=== PATIENT | female | born 1985 | race Asian ===

== ENCOUNTER → 2017-01-28 | Outpatient (CLI) | payer BC ==
[2017-01-29 17:53] LABS: BLOOD UREA NITROGEN 15 mg/dL (7-20); CALCIUM 9.3 mg/dL (8.4-10.2); CHLORIDE 98 mmol/L (98-107); CREATININE RESULT 0.73 mg/dL (0.52-1.25); GLUCOSE 79 mg/dL (75-110); POTASSIUM 3.1 mmol/L (3.6-5.0)
[2017-01-29 17:54] LABS: ANION GAP 15 (5-19); CARBON DIOXIDE 27 mmol/L (22-30)
--- NOTE | 2017-01-31 17:48 | EKG REPORT ---
SEVERITY:- NORMAL ECG - SINUS RHYTHM : Confirmed by: Ora Victor MD 31-Jan-2017 17:47:35
== END ==
LOC: OD 15:00
PROVIDERS: ATTEND Specialist
DX: I10 Essential (primary) hypertension (principal)
CPT/HCPCS: 36415; 80048; 84443; 93005; 93010

== ENCOUNTER 2018-07-08 06:27 | Inpatient (IN) | payer BC, MEDICAID ==
[2018-07-08] MEDS ORDERED: RINGERS SOLUTION,LACTATED 1,000 ML IV PRN (06:35)
[2018-07-08] MEDS ORDERED: RINGERS SOLUTION,LACTATED 1,000 ML IV ONE (06:35)
[2018-07-08] MEDS ORDERED: OXYTOCIN/NORMAL SALINE 20 UNIT/1,000 ML RTUINJ IV PRN (06:38)
--- NOTE | 2018-07-08 06:53 | Admission Physical ---
Datetime Report Generated by CPN: 07/08/2018 06:53 CURRENT ADMISSION Chief Complaint: Scheduled Induction of Labor Indication for Induction: Chronic Primary/Essential HTN Admit Impression : Term, Intrauterine ; No Active Labor; Intact Membranes; Induction of Labor Admit Plan: Admit to Unit; Initiate Labor Induction Protocol ALLERGIES Medication Allergies: No Medication Allergies: No Known Allergies (07/08/2018) Latex: No Latex Allergies Food Allergies: N/A Environmental Allergies: N/A OBSTETRICAL HISTORY EDC: 07/21/2018 00:00 : 5 Para: 1 Term: 1 : 0 SAB: 3 IAB: 0 Ectopic: 0 Livin Cesareans: 0 VBACs: 0 Multiple Births: 0 Current Procedures: Ultrasound; NST Obstetrical History Comments: G1 - EAB 2003, 12 weeks G2 - SAB 2010 G3 - EAB 2011, 8 weeks G4 - 2015, boy, 39.0, 7 lbs 1 oz, loose nuchal x1 G5 - current, CHTN on procardia MEDICAL HISTORY Hypertension: Yes Hosp/Surgery: Yes Abnormal Pap Smear: Yes Medical History Comments: CHTN on procardia, ASCUS +HPV, Colpo PP, childbirth INFECTIOUS HISTORY HPV: Yes PHYSICAL EXAM General: Normal HEENT: Normal Neurologic: Normal Thyroid: Deferred Heart: Normal Lungs: Normal Breast: Deferred Back: Normal Abdomen: Normal Genitourinary Exam: Normal Extremities: Normal DTRs: Normal Pelvic Type: Adequate Vital Signs: Reviewed VAGINAL EXAM Dilatation: 1 Effacement: 70 Station: -3 Contraction Comments: rare MEMBRANES Membranes: Intact FETUS A EGA: 38.1 Monitoring: External US FHR- Baseline: 145 Variability: Moderate 6-25bpm Accelerations: 15X15 Decelerations: None FHR Category: Category I Presentation: Vertex Admit Comment: 32yo (EAB x 2, SAB x 1) at 38+1ega presents for IOL for CHTN on meds - currently on procardia. ASCUS with +HPV - needs colpo pp. Undesired Fertility and desires BTL pp. GBS negative. Admit to L_D and IOL with cooks and pitocin. Anticipate PLANS FOR LABOR AND DELIVERY Pain Management: Epidural Feeding Preference: Breast INFORMED CONSENT Informed Consent Obtained: Vaginal Delivery; Induction of Labor; Risks, Benefits and Alternatives Discussed Signature: with User ID: [email or web address]
[2018-07-08 07:28] LABS: ABSOLUTE EOSINOPHILS # (AUTO) 0.1 10^3/uL (0.0-0.6); ABSOLUTE MONOCYTES (AUTO) 0.8 10^3/uL (0.1-1.4); ABSOLUTE NEUT (AUTO) 6.2 10^3/uL (1.7-8.2); BASOPHILS % (AUTO) 0.5 % (0-2); EOSINOPHILS % (AUTO) 1.6 % (0-6); HEMATOCRIT 31.3 % (36.0-47.0); HEMOGLOBIN 10.6 g/dL (12.0-15.5); LYMPHOCYTES % (AUTO) 21.6 % (13-45); MEAN CORPUSCULAR HEMOGLOBIN 29.7 pg (27.0-33.4); MEAN CORPUSCULAR HGB CONC 34.1 g/dL (32.0-36.0); MEAN CORPUSCULAR VOLUME 87 fl (80-97); MONOCYTES % (AUTO) 8.2 % (3-13); PLATELET COUNT 294 10^3/uL (150-450); RED BLOOD COUNT 3.58 10^6/uL (3.72-5.28); RED CELL DISTRIBUTION WIDTH 14.2 % (11.5-14.0); SEGMENTED NEUTROPHILS % (AUTO) 68.1 % (42-78); TOTAL CELLS COUNTED % (AUTO) 100 %; WHITE BLOOD COUNT 9.1 10^3/uL (4.0-10.5)
[2018-07-08 07:36] LABS: APPEARANCE,URINE CLOUDY; BILIRUBIN,URINE NEGATIVE (NEGATIVE); COLOR,URINE YELLOW; GLUCOSE, URINE NEGATIVE (NEGATIVE); KETONES,URINE NEGATIVE (NEGATIVE); LEUKOCYTE ESTERASE,URINE TRACE (NEGATIVE); NITRITE,URINE NEGATIVE (NEGATIVE); PROTEIN,URINE NEGATIVE (NEGATIVE); URINE SPECIFIC GRAVITY 1.008; UROBILINOGEN,URINE NEGATIVE mg/dL (<2.0)
[2018-07-08 07:52] LABS: URINE AMPHETAMINES SCREEN NEGATIVE; URINE BARBITURATES SCREEN NEGATIVE; URINE BENZODIAZEPINES SCREEN NEGATIVE; URINE COCAINE SCREEN NEGATIVE; URINE MARIJUANA (THC) SCREEN NEGATIVE; URINE METHADONE SCREEN NEGATIVE; URINE PHENCYCLIDINE SCREEN NEGATIVE
--- NOTE | 2018-07-08 08:42 | L&D Progress Notes ---
PROGRESS NOTES Datetime Report Generated by CPN: 07/08/2018 08:42 PROGRESS NOTE Impression Other: IUP @38w1d Procedures: Sterile Vag Exam Procedures- Other: cook's catheter Plan: Continue Present Management; Induction; Cervical Ripening Informed Consent Obtained: Vaginal Delivery; Induction of Labor; Risks, Benefits and Alternatives Discussed Informed Consent Obtained: Vaginal Delivery; Induction of Labor; Risks, Benefits and Alternatives Discussed Vital Signs : Reviewed; Within Normal Limits Comment: S: comfortable, no concerns this am, planning on epidural for pain management, agreeable to cook's catheter O: VSS, Cat I tracing, cervix as stated A: IUP @ 38w1d IOL for CHTN-stable, cook's catheter placed without diffficulty, tolerated well P: start low dose pitocin at this time, epidural prn VAGINAL EXAM Dilatation: 2 Dilatation: 1 Effacement: 60 Effacement: 70 Station: -2 Station: -3 Contractions: rare Contractions: rare MEMBRANES Membranes: Intact Membranes: Intact FETUS A FHR - Baseline: 150 Monitoring: External US Variability: Moderate 6-25bpm Accelerations: Prolonged Decelerations: None FHR Category: Category I Presentation: Vertex SIGNATURE SIGNATURE: ,[id number] SIGNATURE: ,[id number] Assignment: Eleonora Talley MD Signature: with User ID: [email or web address] : with User ID: [email or web address]
[2018-07-08] MEDS ORDERED: LIDOCAINE 1% INJ-PF (10 MG/ML) 30 ML SDV ONE (08:52)
[2018-07-08] MEDS ORDERED: MISOPROSTOL 0.2 MG TABLET ONE (08:52)
[2018-07-08] MEDS ORDERED: OXYTOCIN/NORMAL SALINE 20 UNIT/1,000 ML RTUINJ ONE (08:53)
[2018-07-08] MEDS ORDERED: BUPIVACAINE HCL 0.5 % INJ/PF 30 ML SDV ONE ×4 (11:26→21:41)
[2018-07-08] MEDS ORDERED: EPHEDRINE SULFATE INJ 50 MG/1 ML AMPULE ONE (11:26)
[2018-07-08] MEDS ORDERED: FENTANYL/BUPIVACAINE/NS/PF 300 MCG/150 ML RTUINJ EPI ONE ×2 (11:26→21:41)
--- NOTE | 2018-07-08 11:31 | L&D Progress Notes ---
PROGRESS NOTES Datetime Report Generated by CPN: 07/08/2018 11:30 PROGRESS NOTE Impression Other: IOL @ 80g1g-uwclburctey well Procedures: Sterile Vag Exam Procedures- Other: removal of cook's catheter Plan: Continue Present Management Informed Consent Obtained: Vaginal Delivery; Vaginal After ; Risks, Benefits and Alternatives Discussed Vital Signs : Reviewed; Within Normal Limits Comment: S: reports increased pain, desires epidural at this time O:vss, cervix as stated, pit @ 8, A: IUP @ 38w1d IOL progressing well P: epidural for pain relief at this point, zimmer bulb removed without difficulty, pt. tolerated procedure well, start pitocin 2mu by 2mu by 15min at this point, VAGINAL EXAM Dilatation: 5 Effacement: 80 Station: -3 Contractions: 3-4 MEMBRANES Membranes: Bulging FETUS A FHR - Baseline: 140 Monitoring: External US Variability: Moderate 6-25bpm Accelerations: 10X10 FETUS C SIGNATURE: [id number] Assignment: Eleonora Younger Eure, MD Signature: with User ID: Elva : with User ID: Elva
[2018-07-08] MEDS ORDERED: ACETAMINOPHEN 325 MG TABLET ONE (20:19)
[2018-07-09] MEDS ORDERED: AMPICILLIN SOD INJ 2 GM VIAL IV ONE (00:46)
[2018-07-09] MEDS ORDERED: DIPHENHYDRAMINE HCL 50 MG/ML VIAL IV ONE (00:48)
--- NOTE | 2018-07-09 00:49 | L&D Progress Notes ---
PROGRESS NOTES Datetime Report Generated by CPN: 07/09/2018 00:49 PROGRESS NOTE Impression: Normal Progression of Labor Impression Other: slow progression Procedures: Artificial ROM Plan: Continue Present Management Plan: Continue Present Management Plan Other: position changes Informed Consent Obtained: Vaginal Delivery; Risks, Benefits and Alternatives Discussed Vital Signs : Reviewed; Within Normal Limits Vital Signs : Reviewed; Within Normal Limits Comment: Pt finally progressing. Arrested at 6 cm for several hrs. Pitocin turned off for a while and restarted. Position changes employed. Cervix now 8 cm with edema on the right. Will try Benadryl. Pt also mildly febrile with temp of 100.2. Will give one dose of Ampicillin, Comment: AROM--clear fluid noted; pit @ 18 mU; pt comfortable-s/p epidural VAGINAL EXAM Dilatation: 8 Dilatation: 6 Effacement: 90 Effacement: 80 Station: 0 Station: -3 Contractions: irreg Contractions: q 2 MEMBRANES Membranes: Ruptured FETUS A FHR - Baseline: 140s FHR - Baseline: 130s Monitoring: External US Monitoring: External US Variability: Moderate 6-25bpm Decelerations: None Decelerations: None FHR Category: Category I : 38.2 : 38.1 FETUS C SIGNATURE: [id number] Signature: with User ID: [email or web address]
[2018-07-09] MEDS ORDERED: AMPICILLIN SOD INJ 2 GM VIAL ONE (00:54)
[2018-07-09] MEDS ORDERED: AMPICILLIN SODIUM 2 GM in NORMAL SALINE 100 ML IV ONE (01:00)
[2018-07-09] MEDS ORDERED: ACETAMINOPHEN 325 MG TABLET ONE ×2 (03:16→04:07)
[2018-07-09] MEDS ORDERED: LOPERAMIDE HCL 2 MG CAPSULE ONE (04:07)
[2018-07-09] MEDS ORDERED: CARBOPROST TROMETHAMINE INJ 250 MCG/1 ML AMPULE ONE (04:08)
[2018-07-09] MEDS ORDERED: OXYTOCIN/NORMAL SALINE 20 UNIT/1,000 ML RTUINJ ONE (04:57)
[2018-07-09] MEDS ORDERED: ZOLPIDEM TARTRATE 5 MG TABLET PO PRN (05:24)
[2018-07-09] MEDS ORDERED: MEASLES,MUMPS&RUBELLA VACC/PF 0.5 ML VIAL SUBCUT PRN (05:24)
[2018-07-09] MEDS ORDERED: OXYTOCIN/NORMAL SALINE 20 UNIT/1,000 ML RTUINJ IV PRN (05:24)
[2018-07-09] MEDS ORDERED: DIPH/PERTUSS(ACELL)/TETANUS VAC/PF 0.5 ML SYR (>=10YO) IM PRN (05:24)
[2018-07-09] MEDS ORDERED: ACETAMINOPHEN WITH CODEINE #3 TABLET PO PRN ×2 (05:24)
[2018-07-09] MEDS ORDERED: DIBUCAINE 1% OINTMENT 28 GM TP PRN (05:24)
[2018-07-09] MEDS ORDERED: BENZOCAINE/MENTHOL AEROSOL SPRAY 56 ML TOP PRN (05:24)
[2018-07-09] MEDS ORDERED: CLINDAMYCIN 900 MG/D5W RTU 900 MG/50 ML RTUPB IV ONE (05:35)
[2018-07-09] MEDS: CLINDAMYCIN 900 MG/D5W RTU 900 MG/50 ML RTUPB IV SCH ×3 (06:23→21:46)
--- NOTE | 2018-07-09 07:19 | Delivery Summary ---
Del Sum A-C Datetime Report Generated by CPN: 07/09/2018 07:19 DELIVERY PERSONNEL DELIVERY PERSONNEL: [id number] Delivery Doctor:: Eleonora Talley MD Labor and Delivery Nurse:: Radha Augustin RN Nursery Nurse:: Marlo Cole RN MATERNAL INFORMATION Delivery Anesthesia: Epidural Medications After Delivery: Pitocin Drip 20 Units/1000ml NSS; Cytotec 1000mcg Per Rectum/Vagina; Other-Please Comment Meds After Delivery Comment: Hemabate 250mcg IM Estimated Blood Loss (ml): 500 ml Maternal Complications: Chorioamnionitis; Hemorrhage Provider Comments: of a viable male at 0452 with an OA with shoulder cord x 1 presentation; APGARS 7@1, 9@5; first degree midline vaginal lac; probable Chorioamnioitis--maternal fever and tachycardia, but no foul odor; placenta sent to pathology LABOR SUMMARY EDC: 07/21/2018 00:00 No. Babies in Womb: 1 Attempted: No Labor Anesthesia: Epidural LABOR INFORMATION Reason for Induction: Chronic Primary/Essential HTN Onset of Labor: 07/08/2018 11:37 Complete Dilatation: 07/09/2018 04:27 Cervical Ripening Agents: Christiansen Balloon Oxytocin: Induction Group B Beta Strep: Negative Antibiotics # of Doses: one Steroids Given: None Reason Steroids Not Administered: Not Applicable MEMBRANES Membranes Rupture Method: Artificial Rupture of Membranes: 07/08/2018 14:04 Length of Rupture (hr): 14.80 Amniotic Fluid Color: Clear Amniotic Fluid Amount: Small Amniotic Fluid Odor: Normal STAGES OF LABOR Stage 1 hr: 16 Stage 1 min: 50 Stage 2 hr: 0 Stage 2 min: 25 Stage 3 hr: 0 Stage 3 min: 3 Total Time in Labor hr: 17 Total Time in Labor min: 18 VAGINAL DELIVERY Episiotomy: None Laceration #1: Vaginal Laceration Extension #1: First Degree Laceration Repair: Yes Laceration Repair Note: 2-0 vicryl in a running locked fashion Sponge Count Correct: N/A Sharps Count Correct: Yes CSECTION DELIVERY Primary Indication: N/A Secondary Indication: N/A CSection Incidence: N/A Labor: N/A Elective: N/A CSection Incision: N/A BABY A INFORMATION Infant Delivery Date/Time: 07/09/2018 04:52 Method of Delivery: Vaginal Born in Route : No : N/A Forceps: N/A Vacuum Extraction: N/A Shoulder Dystocia : No PRESENTATION/POSITION BABY A Presentation: Cephalic Cephalic Presentation: Vertex Vertex Position: Left Occipital Anterior Breech Presentation: N/A PLACENTA INFORMATION BABY A Placenta Delivery Time : 07/09/2018 04:55 Placenta Method of Delivery: Spontaneous Placenta Status: Delivered SCORES BABY A Heart Rate 1 min: >100 bpm Resp Effort 1 min: Good Cry Reflex Irritability 1 min: Cough or Sneeze or Pulls Away Muscle Tone 1 min: Some Flexion of Extremities Color 1 min: Blue/Pale Resuscitation Effort 1 min: Tactile Stimulation SCORE 1 MIN: 7 Heart Rate 5 min: >100 bpm Resp Effort 5 min: Good Cry Reflex Irritability 5 min: Cough or Sneeze or Pulls Away Muscle Tone 5 min: Some Flexion of Extremities Color 5 min: Body Chinle, Extremities Blue Resuscitation Effort 5 min: Tactile Stimulation SCORE 5 MIN: 8 INFORMATION BABY A Gestational Age at Delivery: 38.2 Gestational Status: Early Term- 37- 38.6 Weeks Infant Outcome : Liveborn Condition : Stable Infant Sex: Male CORD INFORMATION BABY A No. Cord Vessels: 3 Nuchal Cord : Around Neck x1, Loose Cord Blood Taken: Yes-For Storage (Mom's Blood type +) Infant Suction: Mouth; Nose ASSESSMENT BABY A Infant Complications: Extended Tachycardia; Polyhydramnios Physical Findings at Delivery: Within Normal Limits Respirations: Appears Normal Embedded Developer/ALS Called : No Care By: Marlo Cole RN Transferred To: Remains with Mother BABY B INFORMATION : N/A SIGNATURES Signature: with User ID: [email or web address]
[2018-07-09] MEDS: FERROUS SULFATE 325 MG TABLET PO SCH ×2 (10:08→17:11)
[2018-07-09] MEDS: PRENATAL VITAMIN W DHA CAPSULE PO SCH (10:08)
[2018-07-09] MEDS: IBUPROFEN 800 MG TABLET PO SCH ×3 (10:11→21:45)
[2018-07-09] MEDS: DOCUSATE SODIUM 100 MG CAPSULE PO SCH ×2 (10:11→17:11)
[2018-07-09] MEDS: SENNOSIDES/DOCUSATE 8.6-50 MG 1 EACH TABLET PO SCH (10:11)
[2018-07-10] MEDS: IBUPROFEN 800 MG TABLET PO SCH ×3 (05:21→21:35)
[2018-07-10 08:04] LABS: HEMATOCRIT 26.5 % (36.0-47.0); HEMOGLOBIN 9.2 g/dL (12.0-15.5); MEAN CORPUSCULAR HEMOGLOBIN 29.8 pg (27.0-33.4); MEAN CORPUSCULAR HGB CONC 34.5 g/dL (32.0-36.0); MEAN CORPUSCULAR VOLUME 87 fl (80-97); PLATELET COUNT 250 10^3/uL (150-450); RED BLOOD COUNT 3.07 10^6/uL (3.72-5.28); RED CELL DISTRIBUTION WIDTH 14.5 % (11.5-14.0); WHITE BLOOD COUNT 14.7 10^3/uL (4.0-10.5)
--- NOTE | 2018-07-10 09:47 | PDOC PROGRESS REPORT ---
Subjective-OB Progress Note for:: 07/10/18 Subjective: Doing well, baby getting hearing test, feeling better, Physical Exam (OB) Vital Signs: Temp Pulse Resp BP Pulse Ox 98.0 F 73 16 116/77 99 07/10/18 03:58 07/10/18 03:58 07/10/18 03:58 07/10/18 03:58 07/10/18 03:58 Intake & Output 07/09/18 07/10/18 07/11/18 06:59 06:59 06:59 Intake Total 2550 Balance 2550 Weight 65.6 kg - PIH/Pre-Eclampsia DTR's: 2 + Clonus: Negative Headache: Absent Epigastric Pain: No Visual Changes: No - Lochia Lochia Amount: Scant < 10 ml Lochia Color: Rubra/Red - Abdomen Description: Soft Hernia Present: No Fundal Description: Firm, Midline Describe if Not Midline: deviated to the right Fundal Height: u/u - u/2 Objective-Diagnostic Laboratory: 07/10/18 07:47 07/10/18 07:47 WBC 14.7 H RBC 3.07 L Hgb 9.2 L Hct 26.5 L MCV 87 MCH 29.8 MCHC 34.5 RDW 14.5 H Plt Count 250 Assessment and Plan(PN) - Assessment and Plan (1) Anemia Qualifiers: Other causes of anemia: acute posthemorrhagic Is this a current diagnosis for this admission?: Yes (2) Normal vaginal delivery Is this a current diagnosis for this admission?: Yes (3) Chronic hypertension affecting Is this a current diagnosis for this admission?: Yes - Time Spent with Patient Time with patient: Less than 15 minutes Medications reviewed and adjusted accordingly: Yes - Disposition Anticipated Discharge: Home Within: within 48 hours
[2018-07-10] MEDS: FERROUS SULFATE 325 MG TABLET PO SCH ×2 (10:34→18:33)
[2018-07-10] MEDS: PRENATAL VITAMIN W DHA CAPSULE PO SCH (10:34)
[2018-07-10] MEDS: SENNOSIDES/DOCUSATE 8.6-50 MG 1 EACH TABLET PO SCH (10:35)
[2018-07-10] MEDS: DOCUSATE SODIUM 100 MG CAPSULE PO SCH ×2 (10:35→18:33)
[2018-07-11] MEDS: IBUPROFEN 800 MG TABLET PO SCH (05:28)
[2018-07-11] MEDS: PRENATAL VITAMIN W DHA CAPSULE PO SCH (09:44)
[2018-07-11] MEDS: FERROUS SULFATE 325 MG TABLET PO SCH (09:44)
[2018-07-11] MEDS: DOCUSATE SODIUM 100 MG CAPSULE PO SCH (09:47)
[2018-07-11] MEDS: SENNOSIDES/DOCUSATE 8.6-50 MG 1 EACH TABLET PO SCH (09:47)
--- NOTE | 2018-07-11 10:26 | PDOC PROGRESS REPORT ---
Subjective-OB Progress Note for:: 07/11/18 Subjective: Doing well, no c/o, no fever, voiding, eating well, ready to go home Physical Exam (OB) Vital Signs: Temp Pulse Resp BP Pulse Ox 98.3 F 72 16 118/67 97 07/11/18 07:45 07/11/18 07:45 07/11/18 07:45 07/11/18 07:45 07/11/18 07:45 Intake & Output 07/10/18 07/11/18 07/12/18 06:59 06:59 06:59 Intake Total 2550 260 Balance 2550 260 - PIH/Pre-Eclampsia DTR's: 2 + Clonus: Negative Headache: Absent Epigastric Pain: No Visual Changes: No - Lochia Lochia Amount: Scant < 10 ml Lochia Color: Rubra/Red - Abdomen Description: Tender, Soft Hernia Present: No Fundal Description: Firm, Midline Describe if Not Midline: deviated to the right Fundal Height: u/u - u/2 Objective-Diagnostic Laboratory: 07/10/18 07:47 Assessment and Plan(PN) - Assessment and Plan (1) Anemia Qualifiers: Other causes of anemia: acute posthemorrhagic Is this a current diagnosis for this admission?: Yes (2) Normal vaginal delivery Is this a current diagnosis for this admission?: Yes (3) Chronic hypertension affecting Is this a current diagnosis for this admission?: Yes - Time Spent with Patient Time with patient: Less than 15 minutes Medications reviewed and adjusted accordingly: Yes - Disposition Anticipated Discharge: Home Within: within 24 hours
--- NOTE | 2018-07-11 10:33 | PDOC DISCHARGE SUMMARY ---
Final Diagnosis Discharge Date: 07/11/18 - Final Diagnosis (1) Anemia Is this a current diagnosis for this admission?: Yes (2) Normal vaginal delivery Is this a current diagnosis for this admission?: Yes (3) Chronic hypertension affecting Is this a current diagnosis for this admission?: Yes Discharge Data - Discharge Medication Prescriptions: Nifedipine [Procardia XL 30 mg Tablet] 1 tab PO DAILY #30 tab.er.24 Home Medications: Vits96/Iron Fum/Folic [ Tablet] 1 tab PO DAILY 05/14/15 Nifedipine [Procardia XL 30 mg Tablet] 1 tab PO DAILY #30 tab.er.24 07/11/18 Gestational Age: 38.2 Reason(s) for Admission: Induction of Labor, PIH - polyhydramnios Procedures: NST, Ultrasound Intrapartum Procedure(s): Spontaneous Vaginal Delivery Complication(s): Laceration-Vaginal - [place] Data Baby 1 Male Home with Mother: Yes Complications: No - Diagnosis Test Laboratory: Temp Pulse Resp BP Pulse Ox 98.3 F 72 16 118/67 97 07/11/18 07:45 07/11/18 07:45 07/11/18 07:45 07/11/18 07:45 07/11/18 07:45 07/08/18 07/08/18 07/10/18 06:32 07:06 07:47 RBC 3.58 L 3.07 L Hgb 10.6 L 9.2 L Hct 31.3 L 26.5 L Urine Opiates Screen NEGATIVE - Discharge information/Instructions Discharge Activity: Activity As Tolerated, No Lifting Over 10 Pounds, No Lifting /Push/Pulling, Pelvic Rest Discharge Diet: As Tolerated, Regular Disposition: HOME, SELF-CARE Follow up with: [facility] in: 2, Weeks
[2018-07-11 12:45] VITALS: BP 126/72
== END 2018-07-11 13:55 | disposition home or self-care (01) | DRG 805 ==
LOC: LR 06:27 → 2S 07-09 08:50
PROVIDERS: ADMIT Obstetrics & Gynecology; ATTEND Obstetrics & Gynecology
PROC: 10E0XZZ Delivery of Products of Conception, External Approach (ICD-10-PCS; principal; 2018-07-09)
PROC: 0HQ9XZZ Repair Perineum Skin, External Approach (ICD-10-PCS; 2018-07-09)
DX: O10.02 Pre-existing essential hypertension complicating childbirth (principal); O41.1230 Chorioamnionitis, third trimester, not applicable or unspecified; Z37.0 Single live birth; D62 Acute posthemorrhagic anemia; O70.0 First degree perineal laceration during delivery; O69.81X0 Labor and delivery complicated by cord around neck, without compression, not applicable or unspecified; O67.9 Intrapartum hemorrhage, unspecified; O99.02 Anemia complicating childbirth; Z3A.38 38 weeks gestation of pregnancy
CPT/HCPCS: 36415; 80307; 81001; 85025; 85027; 86592; 86850; 86900; 86901; 88307; C1726; J0290; J1200; J2590; J3010; J3490

== ENCOUNTER 2018-08-26 09:49 | Day surgery (SDC) | payer BC, MEDICAID ==
[2018-08-25 09:53] LABS: HEMATOCRIT 41.2 % (36.0-47.0); HEMOGLOBIN 14.1 g/dL (12.0-15.5); MEAN CORPUSCULAR HEMOGLOBIN 29.4 pg (27.0-33.4); MEAN CORPUSCULAR HGB CONC 34.2 g/dL (32.0-36.0); MEAN CORPUSCULAR VOLUME 86 fl (80-97); PLATELET COUNT 359 10^3/uL (150-450); RED CELL DISTRIBUTION WIDTH 15.2 % (11.5-14.0)
[2018-08-25 10:00] LABS: APPEARANCE,URINE SLIGHTLY-CLOUDY; BILIRUBIN,URINE NEGATIVE (NEGATIVE); COLOR,URINE YELLOW; GLUCOSE, URINE NEGATIVE (NEGATIVE); KETONES,URINE NEGATIVE (NEGATIVE); LEUKOCYTE ESTERASE,URINE TRACE (NEGATIVE); NITRITE,URINE NEGATIVE (NEGATIVE); PROTEIN,URINE NEGATIVE (NEGATIVE); URINE SPECIFIC GRAVITY 1.026; UROBILINOGEN,URINE NEGATIVE mg/dL (<2.0)
--- NOTE | 2018-08-25 21:04 | EKG REPORT ---
SEVERITY:- NORMAL ECG - SINUS RHYTHM : Confirmed by: Ora Victor MD 25-Aug-2018 21:03:45
[~2018-08-26 09:49] MED LIST: LACTATED RINGERS 1000 ML IV PRN; LIDOCAINE 0.5% INJ-PF (5 MG/ML) 50 ML SDV SUBCUT PRN
[2018-08-26] MEDS ORDERED: MIDAZOLAM 2 MG/2 ML INJ ONE (11:13)
[2018-08-26] MEDS ORDERED: FENTANYL CITRATE INJ/PF 100 MCG/2 ML AMPUL ONE (11:13)
[2018-08-26] MEDS ORDERED: PROPOFOL INJ 200 MG/20 ML VIAL IV ONE (11:14)
[2018-08-26] MEDS ORDERED: DIPHENHYDRAMINE HCL 50 MG/ML VIAL IV PRN (11:54)
[2018-08-26] MEDS ORDERED: PROMETHAZINE HCL INJ 25 MG/1 ML VIAL IV PRN (11:54)
[2018-08-26] MEDS ORDERED: MEPERIDINE HCL/PF INJ 25 MG/1 ML DISP.SYRIN IV PRN (11:54)
[2018-08-26] MEDS ORDERED: FENTANYL CITRATE INJ/PF 100 MCG/2 ML AMPUL IV PRN ×3 (11:54)
[2018-08-26] MEDS ORDERED: MORPHINE SULFATE 10 MG/ML INJ IM PRN (13:02)
[2018-08-26] MEDS ORDERED: OXYCODONE-ACETAMINOPHEN 5-325 MG TABLET PO PRN ×2 (13:03)
[2018-08-26] MEDS ORDERED: IBUPROFEN 800 MG TABLET PO PRN (13:03)
[2018-08-26] MEDS ORDERED: RINGERS SOLUTION,LACTATED 1,000 ML IV PRN (13:03)
[2018-08-26] MEDS ORDERED: OXYCODONE-ACETAMINOPHEN 5-325 MG TABLET ONE (13:15)
[2018-08-26] MEDS ORDERED: DEXAMETHASONE SOD PHOSPHATE INJ 4 MG/1 ML VIAL ONE (13:33)
[2018-08-26] MEDS ORDERED: LIDOCAINE 2% INJ-PF (20 MG/ML) 2 ML AMPUL ONE (13:33)
[2018-08-26] MEDS ORDERED: SUCCINYLCHOLINE CHLORIDE INJ 200 MG/10 ML VIAL ONE (13:33)
[2018-08-26] MEDS ORDERED: KETOROLAC TROMETHAMINE 60 MG/2 ML SDV ONE (13:33)
[2018-08-26] MEDS ORDERED: ONDANSETRON HCL INJ/PF 4 MG/2 ML SDV ONE (13:33)
[2018-08-26 15:14] VITALS: BP 148/96
--- NOTE | 2018-10-06 23:27 | OPERATIVE REPORT E ---
Operative Report NAME: LEVON MARTIN : 1985 AGE: 32Y DATE OF SURGERY: 08/26/2018 ROOM: PREOPERATIVE DIAGNOSIS: Undesired fertility. POSTOPERATIVE DIAGNOSIS: Undesired fertility. SURGEON: SHENG WATERS M.D. ANESTHESIA: Dr. Donald and Lilliam Grimes MRI SPECIALIST with general. FINDINGS: Normal uterus, tubes and ovaries. ESTIMATED BLOOD LOSS: 20 mL. SPECIMENS REMOVED: None. PROCEDURE: Laparoscopic tubal cauterization. PROCEDURE IN DETAIL: The patient was taken to the operating room, prepared and draped in a normal sterile fashion in a dorsal lithotomy position. Under sterile conditions an in-and-out cath was performed of approximately 100 mL of clear urine. A sterile speculum was placed in the vagina and the cervix was grasped on the anterior aspect with a single-tooth tenaculum. The cervix was then prepped with Betadine and a Hulka clamp was introduced through the cervix for uterine manipulation. The speculum was then removed and gloves were changed, and attention was turned to the upper portion of the case where an umbilical skin incision was made with a scalpel to accommodate a 5 mm trocar. A Veress needle was introduced through this incision and the peritoneal cavity placement was confirmed with free flow sterile water through the needle. The abdomen was inflated with approximately 2 L of CO2 gas with a beginning pressure of less than 4 mmHg. The Veress needle was removed and the 5 mm trocar was introduced through this incision and the camera was introduced with the above findings noted. The patient was placed in steep Trendelenburg and under direct visualization a 5 mm trocar was placed in the left lower quadrant. The blunt probe was introduced and the bowel was swept away. At that point, the probed was removed and the Kleppinger was then introduced. Beginning with the left fallopian tube, a 3.5 cm segment of the fallopian tube was completed coagulated for occlusion purposes and this was repeated on the right fallopian tube without any difficulty. At the conclusion of the case, the abdomen was re-inspected and found to have tubal occlusion as well as normal findings otherwise. Under direct visualization the lower trocar was removed with good hemostasis noted. The camera was removed and the abdomen was deflated through the umbilical trocar which was then removed. The skin was closed with 4-0 Vicryl at both sites. The Hulka clamp was removed from the vagina and the patient tolerated the procedure well. Sponge, lap and needle counts were correct x2 and the patient was taken to recovery in stable condition. COMPLICATIONS: None. DICTATING PHYSICIAN: SHENG WATERS M.D. [id number] PHY#: [id number] ID: [id number] JOB#: [id number] ACCT: [id number] cc:SHENG WATERS M.D. >
== END 2018-08-26 14:20 | disposition home or self-care (01) ==
LOC: OROUT 09:49
PROVIDERS: ATTEND Obstetrics & Gynecology
DX: Z30.2 Encounter for sterilization (principal); I10 Essential (primary) hypertension; Z79.899 Other long term (current) drug therapy
CPT/HCPCS: 93005; 36415; 85027; 81025; 81001; 93010; 58670; J2250; J1100; J1885; J3010; J0330; J2405; J2704; J3490; 851

== ENCOUNTER 2019-10-05 10:21 | Emergency (ER) | payer BC, MEDICAID ==
--- NOTE | 2019-10-05 10:32 | ER Document Report ---
ED Medical Screen (RME) - General Chief Complaint: High Blood Pressure Stated Complaint: BLOOD PRESSURE ISSUE Time Seen by Provider: 10/05/19 10:28 Primary Care Provider: BENEDICTO GALDAMEZ MD [Primary Care Provider] - Follow up as needed Mode of Arrival: Wheelchair Information source: Patient Notes: 33-year-old female presented to ED for complaint of woozy feeling dizzy and near syncope. She states she was at work and they checked her blood pressure was 142/110. She states she did have a very bad headache and felt like she was going to pass out while at work. Her fellow employee brought her over to the emergency room to be evaluated. Patient does have some nausea but no diarrhea. We will get blood urine and have her examined by another provider. I have greeted and performed a rapid initial assessment of this patient. A comprehensive ED assessment and evaluation of the patient, analysis of test results and completion of medical decision making process will be conducted by an additional ED providers. TRAVEL OUTSIDE OF THE [place] IN LAST 30 DAYS: No - Related Data Allergies/Adverse Reactions: No Known Allergies Allergy (Verified 08/26/18 10:14) Past Medical History - Past Medical History Cardiac Medical History: Reports: Hx Hypertension Denies: Hx Coronary Artery Disease, Hx Heart Attack Pulmonary Medical History: Denies: Hx Asthma, Hx Bronchitis, Hx COPD, Hx Pneumonia Neurological Medical History: Denies: Hx Cerebrovascular Accident, Hx Seizures Musculoskeltal Medical History: Denies Hx Arthritis - Immunizations Hx Diphtheria, Pertussis, Tetanus Vaccination: Yes Doctor's Discharge - Discharge Referrals: BENEDICTO GALDAMEZ MD [Primary Care Provider] - Follow up as needed
[2019-10-05 11:24] LABS: ABSOLUTE BASOPHILS # (AUTO) 0.1 10^3/uL (0.0-0.2); ABSOLUTE EOSINOPHILS # (AUTO) 0.1 10^3/uL (0.0-0.6); ABSOLUTE LYMPHOCYTES (AUTO) 2.2 10^3/uL (0.5-4.7); ABSOLUTE MONOCYTES (AUTO) 0.4 10^3/uL (0.1-1.4); ABSOLUTE NEUT (AUTO) 5.4 10^3/uL (1.7-8.2); BASOPHILS % (AUTO) 0.8 % (0-2); EOSINOPHILS % (AUTO) 1.4 % (0-6); HEMATOCRIT 45.5 % (36.0-47.0); HEMOGLOBIN 15.7 g/dL (12.0-15.5); LYMPHOCYTES % (AUTO) 26.8 % (13-45); MEAN CORPUSCULAR HEMOGLOBIN 29.6 pg (27.0-33.4); MEAN CORPUSCULAR HGB CONC 34.4 g/dL (32.0-36.0); MEAN CORPUSCULAR VOLUME 86 fl (80-97); MONOCYTES % (AUTO) 4.8 % (3-13); PLATELET COUNT 315 10^3/uL (150-450); RED CELL DISTRIBUTION WIDTH 13.5 % (11.5-14.0); SEGMENTED NEUTROPHILS % (AUTO) 66.2 % (42-78); TOTAL CELLS COUNTED % (AUTO) 100 %; WHITE BLOOD COUNT 8.2 10^3/uL (4.0-10.5)
--- NOTE | 2019-10-05 11:28 | ER Document Report ---
Entered by JONNY BURTON SCRIBE 10/05/19 1036 Acting as scribe for:INA ODELL MD ED Blood Pressure Problem - General Chief Complaint: High Blood Pressure Stated Complaint: BLOOD PRESSURE ISSUE Time Seen by Provider: 10/05/19 10:28 Primary Care Provider: JOSE ANN MD [Primary Care Provider] - Follow up tomorrow Mode of Arrival: Wheelchair Information source: Patient Notes: This 33 year old female patient presents to the emergency department today with complaints of elevated blood pressures for the last several months, with a typical reading being 135/85. Patient reports a large amount of recent medication changes in an attempt to try to get her pressures better controlled. Patient was initially on nifedipine 30 mg once daily. Patient then had 12.5 mg of hydrochlorothiazide added to the 30 mg of nifedipine which again did not really bring her pressures down. Patient was then told to increase her nifedipine 30 mg to twice a day along with this 12.5 mg of hydrochlorothiazide. When this did not work either the patient was then switched back to 30 mg of nifedipine once a day and 25 mg of hydrochlorothiazide which again has not worked. Patient has never been on 60mg of Nifedipine and 30 mg of HCTZ yet. Patient states that she feels "jittery, woozy, and dizzy" currently. Patient denies chest pain. TRAVEL OUTSIDE OF THE [place] IN LAST 30 DAYS: No - Related Data Allergies/Adverse Reactions: No Known Allergies Allergy (Verified 10/05/19 10:32) Past Medical History - General Information source: Patient - Social History Smoking Status: Never Smoker Cigarette use (# per day): No Frequency of alcohol use: Occasional Drug Abuse: None Occupation: Medical records Lives with: Family Family History: Reviewed & Not Pertinent - Past Medical History Cardiac Medical History: Reports: Hx Hypertension - Immunizations Hx Diphtheria, Pertussis, Tetanus Vaccination: Yes Review of Systems - Review of Systems Constitutional: No symptoms reported EENT: No symptoms reported Cardiovascular: See HPI, Dizziness, Other - hypertension. denies: Chest pain Respiratory: No symptoms reported Gastrointestinal: No symptoms reported Genitourinary: No symptoms reported Female Genitourinary: No symptoms reported Musculoskeletal: No symptoms reported Skin: No symptoms reported Hematologic/Lymphatic: No symptoms reported Neurological/Psychological: See HPI, Anxiety, Other - "feels jittery" -: Yes All other systems reviewed and negative Physical Exam - Vital signs Vitals: Temp 98.5 F 10/05/19 10:32 - Notes Notes: Physical Exam: General: Alert, appears well. HEENT: Normocephalic. Atraumatic. PERRL. Extraocular movements intact. Oropharynx clear. Neck: Supple. Non-tender. Respiratory: No respiratory distress. Clear and equal breath sounds bilaterally. Cardiovascular: Regular rate and rhythm. Abdominal: Normal Inspection. Non-tender. No distension. Normal Bowel Sounds. Back: No gross abnormalities. Extremities: Moves all four extremities. Upper extremities: Normal inspection. Normal ROM. Lower extremities: Normal inspection. No edema. Normal ROM. Neurological: Normal cognition. AAOx4. Normal speech. Psychological: Anxious. Skin: Warm. Dry. Normal color. Course - Re-evaluation Re-evalutation: 10/05/19 12:39 For the last hour the patient's blood pressure has been running in the 1 40-1 50 systolic range. Her symptoms of jittery feeling have resolved and she feels well at this time. She does have an appointment with Dr. Ann tomorrow morning about 9 AM to review her medications and blood pressure management. - Vital Signs Vital signs: Temp Pulse Resp BP Pulse Ox 98.3 F 12 145/89 H 99 10/05/19 13:01 10/05/19 13:01 10/05/19 13:01 10/05/19 13:01 - Laboratory Result Diagrams: 10/05/19 11:05 10/05/19 11:05 Laboratory results interpreted by me: 10/05/19 10/05/19 10/05/19 11:05 11:05 11:46 RBC 5.30 H Hgb 15.7 H Chloride 97 L Calcium 10.5 H Total Protein 9.1 H Albumin 5.3 H Urine Ketones 80 H - EKG Interpretation by Ok EKG shows normal: Sinus rhythm, [place], Intervals, QRS Complexes, ST-T Waves Rate: Tachycardia - 100 When compared to previous EKG there are: No significant change Discharge - Discharge Clinical Impression: High blood pressure Qualifiers: Hypertension type: essential hypertension Qualified Code(s): I10 - Essential (primary) hypertension Condition: Stable Disposition: HOME, SELF-CARE Additional Instructions: Take an additional 30 mg of nifedipine today. Check your blood pressure in the morning when you get up, in the middle of the day, and at bedtime and keep a log. Take nifedipine 60 mg when you get up tomorrow morning, so that when you see Dr. Ann he will have an idea of how well it is working. RETURN TO THE EMERGENCY ROOM IF ANY NEW OR WORSENING SYMPTOMS. Referrals: JOSE ANN MD [Primary Care Provider] - Follow up tomorrow Scribe Attestation: 10/05/19 12:07 I personally performed the services described in the documentation, reviewed and edited the documentation which was dictated to the scribe in my presence, and it accurately records my words and actions. I personally performed the services described in the documentation, reviewed and edited the documentation which was dictated to the scribe in my presence, and it accurately records my words and actions.
[2019-10-05 11:43] LABS: ALBUMIN 5.3 g/dL (3.5-5.0); ALKALINE PHOSPHATASE 85 U/L (38-126); ANION GAP 14 (5-19); ASPARTATE AMINO TRANSFERASE 24 U/L (14-36); BILIRUBIN,DIRECT 0.2 mg/dL (0.0-0.4); BILIRUBIN,TOTAL 0.7 mg/dL (0.2-1.3); BLOOD UREA NITROGEN 14 mg/dL (7-20); CALCIUM 10.5 mg/dL (8.4-10.2); CARBON DIOXIDE 27 mmol/L (22-30); CHLORIDE 97 mmol/L (98-107); GLUCOSE 98 mg/dL (75-110); POTASSIUM 3.6 mmol/L (3.6-5.0); TOTAL PROTEIN 9.1 g/dL (6.3-8.2)
[2019-10-05 12:23] LABS: APPEARANCE,URINE SLIGHTLY-CLOUDY; BILIRUBIN,URINE NEGATIVE (NEGATIVE); COLOR,URINE YELLOW; GLUCOSE, URINE NEGATIVE (NEGATIVE); KETONES,URINE 80 mg/dL (NEGATIVE); PROTEIN,URINE NEGATIVE (NEGATIVE); URINE SPECIFIC GRAVITY 1.016; UROBILINOGEN,URINE NEGATIVE mg/dL (<2.0)
[2019-10-05 13:13] VITALS: BP 145/89
--- NOTE | 2019-10-05 13:28 | EKG REPORT ---
SEVERITY:- ABNORMAL ECG - SINUS TACHYCARDIA FIRST DEGREE AV BLOCK NONSPECIFIC ST-T CHANGES, DIFFUSE : Confirmed by: Sandor Ewing MD 05-Oct-2019 13:26:59
== END 2019-10-05 13:12 | disposition home or self-care (01) ==
LOC: ER 10:21
DX: I10 Essential (primary) hypertension (principal); Z79.899 Other long term (current) drug therapy; R42 Dizziness and giddiness; F41.9 Anxiety disorder, unspecified; R00.0 Tachycardia, unspecified
CPT/HCPCS: 36415; 80053; 81001; 84443; 84703; 85025; 93005; 93010; 99283